=== PATIENT | male | born 1940 | race Caucasian/White ===

== ENCOUNTER 2020-07-03 10:54 | Inpatient (IN) | payer MEDICARE, OTHER, MEDICAID ==
[2020-07-03] MEDS ORDERED: Sodium Chloride 0.9% 1,000 ML IV SCH (11:30)
--- NOTE | 2020-07-03 11:30 | EDM.PDOC ---
ED HPI GENERAL MEDICAL PROBLEM - General Chief Complaint: Respiratory Problem Stated Complaint: FEVER,SOB,COUGH Time Seen by Provider: 07/03/20 11:10 Source of Information: Reports: Patient History Limitations: Reports: No Limitations - History of Present Illness INITIAL COMMENTS - FREE TEXT/NARRATIVE: 79-year-old male without prior pulmonary issues, presents with a cough for the last 4 weeks but worsening over the last several days with development of a fever, increased cough and shortness of breath. He had some upper abdominal pain this morning with an episode of vomiting, that seems to have improved. He has a persistent fever now, confusion, and there is a concern for COVID. He has some conjunctival erythema but no headache, denies runny nose or sore throat. He claims he slept well last evening. No peripheral edema. He does have known coronary artery disease and recently participated in cardiac rehab. Onset: Gradual Duration: Week(s): (Symptoms have been ongoing for 2 to 3 weeks but the fever and increased cough is been the last 2 days) Associated Symptoms: Reports: Nausea/Vomiting, Other (Upper abdominal pain this morning) - Related Data Allergies Allergy/AdvReac Type Severity Reaction Status Date / Time No Known Allergies Allergy Verified 04/20/15 17:35 Home Meds: Home Meds Aspirin [Aspir 81] 81 mg PO DAILY 07/03/20 [History] Brimonidine [Alphagan P 0.1% Ophth Soln] 1 drop EYEBOTH BID 07/03/20 [History] Dorzolamide HCl/Timolol Maleat [Dorzolamide-Timolol Eye Drops] 1 drop EYEBOTH BID 07/03/20 [History] Isosorbide Mononitrate [Imdur] 30 mg PO DAILY 07/03/20 [History] Metoprolol Tartrate [Lopressor] 25 mg PO DAILY 07/03/20 [History] amLODIPine [Norvasc] 2.5 mg PO DAILY 07/03/20 [History] Past Medical History HEENT History: Reports: Glaucoma Cardiovascular History: Reports: CAD, Hypertension Social & Family History - Tobacco Use Smoking Status *Q: Former Smoker Used Tobacco, but Quit: Yes Month/Year Tobacco Last Used: 1969 - Caffeine Use Caffeine Use: Reports: Coffee - Recreational Drug Use Recreational Drug Use: No ED ROS GENERAL - Review of Systems Review Of Systems: See Below Constitutional: Reports: Fever, Chills, Malaise, Decreased Appetite HEENT: Denies: Ear Pain, Throat Pain Respiratory: Reports: Shortness of Breath, Wheezing, Cough. Denies: Sputum Cardiovascular: Denies: Chest Pain GI/Abdominal: Reports: Abdominal Pain, Nausea, Vomiting. Denies: Constipation, Diarrhea : Reports: No Symptoms Neurological: Reports: Confusion (Patient seems somewhat confused, slow in answering questions). Denies: Headache Psychiatric: Reports: No Symptoms ED EXAM, GENERAL - Physical Exam Exam: See Below Exam Limited By: No Limitations General Appearance: Alert, No Apparent Distress Eye Exam: Bilateral Eye: Conjunctival Injection, EOMI, PERRL Head: Atraumatic Neck: Supple, Non-Tender Respiratory/Chest: Wheezing (Expiratory wheezes are heard when coughing, otherwise decreased breath sounds in the bases but clear and symmetric) Cardiovascular: Regular Rate, Rhythm, Tachycardia GI/Abdominal: Normal Bowel Sounds, Soft, Tender (Still reacts with some slight tenderness to palpation across the upper abdomen but no focal guarding or rebound, no focal tenderness) Extremities: Normal Inspection. No: Pedal Edema Neurological: Alert, Oriented, Slow to Respond Psychiatric: Flat Affect Skin Exam: Warm, Dry Course - Vital Signs Last Recorded V/S: Last Vital Signs Temp 99.5 F 07/03/20 14:00 Pulse 112 H 07/03/20 14:00 Resp 31 H 07/03/20 14:00 BP 106/62 07/03/20 14:00 Pulse Ox 91 L 07/03/20 14:02 - Orders/Labs/Meds Orders: Active Orders 24 hr Category Date Time Status CULTURE BLOOD [BC] Urgent Lab 07/03/20 11:35 Received CULTURE BLOOD [BC] Urgent Lab 07/03/20 11:42 Received Blood Culture x2 Reflex Set [OM.PC] Urgent Oth 07/03/20 11:24 Ordered Medication Orders Acetaminophen (Tylenol) 650 mg PO Q4H PRN PRN Reason: Pain (Mild 1-3)/fever Albuterol (Proventil Neb Soln) 2.5 mg NEB Q4H PRN PRN Reason: Shortness Of Breath/wheezing Amlodipine Besylate (Norvasc) 2.5 mg PO DAILY [facility] Aspirin (Halfprin) 81 mg PO DAILY [facility] Brimonidine Tartrate (Alphagan 0.2% Ophth Soln) 0 ml EYEBOTH BID [facility] Dorzolamide/Timolol (Cosopt 2%-0.5% Ophth Soln) 0 ml EYEBOTH BID [facility] Enoxaparin Sodium (Lovenox) 40 mg SUBCUT DAILY [facility] Sodium Chloride (Normal Saline) 1,000 mls @ 125 mls/hr IV ASDIRECTED [facility] Ceftriaxone Sodium 1 gm/ (Sodium Chloride) 50 mls @ 100 mls/hr IV Q24H [facility] Doxycycline Hyclate 100 mg/ (Sodium Chloride) 100 mls @ 100 mls/hr IV Q12H [facility] Isosorbide Mononitrate (Imdur) 30 mg PO DAILY@0730 [facility] Metoprolol Tartrate (Lopressor) 25 mg PO DAILY [facility] Ondansetron HCl (Zofran) 4 mg IV Q4H PRN PRN Reason: Nausea/Vomiting Polyethylene Glycol (Miralax) 17 gm PO DAILY PRN PRN Reason: Constipation Sodium Chloride (Saline Flush) 10 ml FLUSH ASDIRECTED PRN PRN Reason: Keep Vein Open Labs: Laboratory Tests 07/03/20 07/03/20 07/03/20 Range/Units 11:30 11:42 11:42 WBC 7.3 (4.5-11.0) K/uL RBC 4.15 L (4.30-5.90) M/uL Hgb 13.2 (12.0-15.0) g/dL Hct 39.5 L (40.0-54.0) % MCV 95 (80-98) fL MCH 32 H (27-31) pg MCHC 33 (32-36) % Plt Count 243 (150-400) K/uL Neut % (Auto) 74 H (36-66) % Lymph % (Auto) 16 L (24-44) % [place] % (Auto) 9 H (2-6) % Eos % (Auto) 0 L (2-4) % Baso % (Auto) 0 (0-1) % Sodium 133 L (140-148) mmol/L Potassium 3.5 L (3.6-5.2) mmol/L Chloride 100 (100-108) mmol/L Carbon Dioxide 23 (21-32) mmol/L Anion Gap 13.5 (5.0-14.0) mmol/L BUN 21 H (7-18) mg/dL Creatinine 1.6 H (0.8-1.3) mg/dL Est Cr Clr Drug Dosing 39.29 mL/min Estimated GFR (MDRD) 42 L (>60) Glucose 127 H (74-106) mg/dL Lactic Acid (0.4-2.0) mmol/L Calcium 7.8 L (8.5-10.1) mg/dL Total Bilirubin 0.9 (0.2-1.0) mg/dL AST 38 H (15-37) U/L ALT 36 (12-78) U/L Alkaline Phosphatase 70 (46-116) U/L Total Protein 6.1 L (6.4-8.2) g/dL Albumin 2.8 L (3.4-5.0) g/dL Globulin 3.3 (2.3-3.5) g/dL Albumin/Globulin Ratio 0.9 L (1.2-2.2) SARS Virus RNA (PCR) Negative (NEGATIVE) 07/03/20 Range/Units 11:42 WBC (4.5-11.0) K/uL RBC (4.30-5.90) M/uL Hgb (12.0-15.0) g/dL Hct (40.0-54.0) % MCV (80-98) fL MCH (27-31) pg MCHC (32-36) % Plt Count (150-400) K/uL Neut % (Auto) (36-66) % Lymph % (Auto) (24-44) % [place] % (Auto) (2-6) % Eos % (Auto) (2-4) % Baso % (Auto) (0-1) % Sodium (140-148) mmol/L Potassium (3.6-5.2) mmol/L Chloride (100-108) mmol/L Carbon Dioxide (21-32) mmol/L Anion Gap (5.0-14.0) mmol/L BUN (7-18) mg/dL Creatinine (0.8-1.3) mg/dL Est Cr Clr Drug Dosing mL/min Estimated GFR (MDRD) (>60) Glucose (74-106) mg/dL Lactic Acid 2.3 H (0.4-2.0) mmol/L Calcium (8.5-10.1) mg/dL Total Bilirubin (0.2-1.0) mg/dL AST (15-37) U/L ALT (12-78) U/L Alkaline Phosphatase (46-116) U/L Total Protein (6.4-8.2) g/dL Albumin (3.4-5.0) g/dL Globulin (2.3-3.5) g/dL Albumin/Globulin Ratio (1.2-2.2) SARS Virus RNA (PCR) (NEGATIVE) Meds: Medications Generic Name Dose Route Start Last Admin Trade Name Freq PRN Reason Stop Dose Admin Acetaminophen 650 mg 07/03/20 13:25 Tylenol PO Q4H PRN Pain (Mild 1-3)/fever Albuterol 2.5 mg 07/03/20 13:25 Proventil Neb Soln NEB Q4H PRN Shortness Of Breath/wheezing Amlodipine Besylate 2.5 mg 07/04/20 09:00 Norvasc PO DAILY [facility] Aspirin 81 mg 07/04/20 09:00 Halfprin PO DAILY [facility] Brimonidine Tartrate 0 ml 07/03/20 21:00 Alphagan 0.2% Ophth Soln EYEBOTH BID [facility] Dorzolamide/Timolol 0 ml 07/03/20 21:00 Cosopt 2%-0.5% Ophth Soln EYEBOTH BID [facility] Enoxaparin Sodium 40 mg 07/03/20 14:00 Lovenox SUBCUT DAILY [facility] Sodium Chloride 1,000 mls @ 125 mls/hr 07/03/20 13:25 Normal Saline IV ASDIRECTED [facility] Ceftriaxone Sodium 1 gm/ 50 mls @ 100 mls/hr 07/04/20 13:00 Sodium Chloride IV Q24H [facility] Doxycycline Hyclate 100 mg/ 100 mls @ 100 mls/hr 07/03/20 16:00 Sodium Chloride IV Q12H [facility] Isosorbide Mononitrate 30 mg 07/04/20 07:30 Imdur PO DAILY@0730 [facility] Metoprolol Tartrate 25 mg 07/04/20 09:00 Lopressor PO DAILY [facility] Ondansetron HCl 4 mg 07/03/20 13:25 Zofran IV Q4H PRN Nausea/Vomiting Polyethylene Glycol 17 gm 07/03/20 13:25 Miralax PO DAILY PRN Constipation Sodium Chloride 10 ml 07/03/20 13:25 Saline Flush FLUSH ASDIRECTED PRN Keep Vein Open Discontinued Medications Generic Name Dose Route Start Last Admin Trade Name Stella PRN Reason Stop Dose Admin Acetaminophen 1,000 mg 07/03/20 12:17 07/03/20 13:29 Tylenol Extra Strength PO 07/03/20 12:18 1,000 mg ONETIME ONE Administration Sodium Chloride 1,000 mls @ 1,000 mls/hr 07/03/20 11:30 07/03/20 11:42 Normal Saline IV 1,000 mls/hr ASDIRECTED [facility] Administration Azithromycin 500 mg/ Sodium 250 mls @ 250 mls/hr 07/03/20 12:17 Chloride IV 07/03/20 13:16 ONETIME ONE Ceftriaxone Sodium 1 gm/ 50 mls @ 100 mls/hr 07/03/20 13:15 07/03/20 13:29 Sodium Chloride IV 07/03/20 13:44 100 mls/hr ONETIME ONE Administration - Re-Assessments/Exams Free Text/Narrative Re-Assessment/Exam: 07/03/20 11:30 An IV was started, patient will be bolused with 1 L of normal saline while blood cultures x2, CBC, CMP, lactic acid and COVID test will be obtained. Two-view chest x-ray was ordered and patient will be started on antibiotics after the blood cultures are drawn. 07/03/20 12:07 Chest x-ray is clear, white count is normal. Patient was given 1000 g of acetaminophen for his fever, chemistry profile did have abnormalities including elevated creatinine and BUN. 07/03/20 13:24 Patient continued to run fever, cover test came back negative. UA showed no evidence of infection. Lactic acid was mildly elevated and kidney function was mildly reduced, no previous levels to compare. Discussed his case with Dr. Osborn, he agreed to watch him in the hospital and we started IV antibiotics with Rocephin and Zithromax pending blood culture results. Departure - Departure Time of Disposition: 13:49 Disposition: Admitted As Inpatient 67 Clinical Impression: Bronchitis, Hypoxia Fever Qualifiers: Fever type: due to other condition Qualified Code(s): R50.81 - Fever presenting with conditions classified elsewhere - Discharge Information Sepsis Event Note (ED) - Evaluation Sepsis Screening Result: Possible Sepsis Risk - Focused Exam Vital Signs: Vital Signs Temp Pulse Resp BP Pulse Ox 07/03/20 11:05 102.5 F H 120 H 24 H 132/82 90 L 07/03/20 11:04 102.5 F H 120 H 24 H 132/82 90 L - My Orders Last 24 Hours: My Active Orders 07/03/20 11:24 Blood Culture x2 Reflex Set [OM.PC] Urgent 07/03/20 11:35 CULTURE BLOOD [BC] Urgent 07/03/20 11:42 CULTURE BLOOD [BC] Urgent - Assessment/Plan Last 24 Hours: My Active Orders 07/03/20 11:24 Blood Culture x2 Reflex Set [OM.PC] Urgent 07/03/20 11:35 CULTURE BLOOD [BC] Urgent 07/03/20 11:42 CULTURE BLOOD [BC] Urgent
[2020-07-03] MEDS ORDERED: Azithromycin 500 MG in Sodium Chloride 0.9% 250 ML IV ONE (12:17)
[2020-07-03] MEDS ORDERED: Acetaminophen 500 MG Tab PO ONE (12:17)
[2020-07-03] MEDS ORDERED: cefTRIAXone 1 GM in Sodium Chloride 0.9% 50 ML IV ONE ×2 (12:17→13:15)
--- NOTE | 2020-07-03 12:58 | PCM.HP.2 ---
H&P History of Present Illness - General Date of Service: 07/03/20 Admit Problem/Dx: Admission Diagnosis/Problem Admission Diagnosis/Problem Hypoxia Source of Information: Patient, Family, Provider, RN Notes Reviewed History Limitations: Reports: No Limitations - History of Present Illness Initial Comments - Free Text/Narative: Mr. Lawson is a 79-year-old gentleman who was admitted through the emergency department with weakness, fever, hypoxia, and cough, secondary to bronchitis and respiratory compromise. He has not felt well over the past few weeks, during that time and has had a cough with progressive decrease in appetite and overall strength. Symptoms have been worse over the last 2 days so he presented to the emergency department for further evaluation. White blood cell count is normal, chest x-ray shows no obvious infiltrates, and COVID-19 test is negative. Respiratory rate was found to be increased with borderline oxygenation and oxygen saturation of 90% on room air. - Related Data Allergies/Adverse Reactions: Allergies Allergy/AdvReac Type Severity Reaction Status Date / Time No Known Allergies Allergy Verified 04/20/15 17:35 Home Medications: Home Meds Aspirin [Aspir 81] 81 mg PO DAILY 07/03/20 [History] Brimonidine [Alphagan P 0.1% Ophth Soln] 1 drop EYEBOTH BID 07/03/20 [History] Dorzolamide HCl/Timolol Maleat [Dorzolamide-Timolol Eye Drops] 1 drop EYEBOTH BID 07/03/20 [History] Isosorbide Mononitrate [Imdur] 30 mg PO DAILY 07/03/20 [History] Metoprolol Tartrate [Lopressor] 25 mg PO DAILY 07/03/20 [History] amLODIPine [Norvasc] 2.5 mg PO DAILY 07/03/20 [History] Past Medical History HEENT History: Reports: Glaucoma Cardiovascular History: Reports: CAD, Hypertension Social & Family History - Tobacco Use Smoking Status *Q: Former Smoker Used Tobacco, but Quit: Yes Month/Year Tobacco Last Used: 1969 - Caffeine Use Caffeine Use: Reports: Coffee - Recreational Drug Use Recreational Drug Use: No H&P Review of Systems - Review of Systems: Review Of Systems: See Below General: Reports: Fever, Chills, Malaise, Weakness HEENT: Reports: No Symptoms Pulmonary: Reports: Shortness of Breath, Cough. Denies: Wheezing, Pleuritic Chest Pain, Sputum, Hemoptysis Cardiovascular: Reports: Dyspnea on Exertion. Denies: Chest Pain, Palpitations, Orthopnea, PND, Edema, Lightheadedness Gastrointestinal: Reports: No Symptoms Genitourinary: Reports: No Symptoms Musculoskeletal: Reports: No Symptoms Skin: Reports: No Symptoms Psychiatric: Reports: No Symptoms Neurological: Reports: No Symptoms Hematologic/Lymphatic: Reports: No Symptoms Immunologic: Reports: No Symptoms Exam - Exam Exam: See Below - Vital Signs Vital Signs: Last Vital Signs Temp 102.5 F H 07/03/20 11:05 Pulse 120 H 07/03/20 11:05 Resp 24 H 07/03/20 11:05 BP 132/82 07/03/20 11:05 Pulse Ox 90 L 07/03/20 11:05 Weight: 214 lb - Exam Quality Assessment: DVT Prophylaxis General: Alert, Oriented, Cooperative, Moderate Distress Neck: Supple, Trachea Midline, +2 Carotid Pulse wo Bruit Lungs: Decreased Breath Sounds. No: Crackles, Rales, Rhonchi, Wheezing Cardiovascular: Regular Rhythm, Normal S1, Normal S2, Tachycardia. No: Systolic Murmur, Diastolic Murmur GI/Abdominal Exam: Soft, Non-Tender, No Organomegaly, No Distention Extremities: Normal Inspection, Non-Tender, No Pedal Edema Skin: Warm, Dry, Intact Neurological: Cranial Nerves Intact, Strength Equal Bilateral, Normal Speech, Normal Tone, Sensation Intact. No: Focal Deficit Neuro Extensive - Mental Status: Alert, Oriented x3, Normal Mood/Affect, Normal Cognition, Memory Intact - Patient Data Lab Results Last 24 hrs: Laboratory Results - last 24 hr 07/03/20 07/03/20 07/03/20 Range/Units 11:30 11:42 11:42 WBC 7.3 (4.5-11.0) K/uL RBC 4.15 L (4.30-5.90) M/uL Hgb 13.2 (12.0-15.0) g/dL Hct 39.5 L (40.0-54.0) % MCV 95 (80-98) fL MCH 32 H (27-31) pg MCHC 33 (32-36) % Plt Count 243 (150-400) K/uL Neut % (Auto) 74 H (36-66) % Lymph % (Auto) 16 L (24-44) % [place] % (Auto) 9 H (2-6) % Eos % (Auto) 0 L (2-4) % Baso % (Auto) 0 (0-1) % Sodium 133 L (140-148) mmol/L Potassium 3.5 L (3.6-5.2) mmol/L Chloride 100 (100-108) mmol/L Carbon Dioxide 23 (21-32) mmol/L Anion Gap 13.5 (5.0-14.0) mmol/L BUN 21 H (7-18) mg/dL Creatinine 1.6 H (0.8-1.3) mg/dL Est Cr Clr Drug Dosing 39.29 mL/min Estimated GFR (MDRD) 42 L (>60) Glucose 127 H (74-106) mg/dL Lactic Acid (0.4-2.0) mmol/L Calcium 7.8 L (8.5-10.1) mg/dL Total Bilirubin 0.9 (0.2-1.0) mg/dL AST 38 H (15-37) U/L ALT 36 (12-78) U/L Alkaline Phosphatase 70 (46-116) U/L Total Protein 6.1 L (6.4-8.2) g/dL Albumin 2.8 L (3.4-5.0) g/dL Globulin 3.3 (2.3-3.5) g/dL Albumin/Globulin Ratio 0.9 L (1.2-2.2) SARS Virus RNA (PCR) Negative (NEGATIVE) 07/03/20 Range/Units 11:42 WBC (4.5-11.0) K/uL RBC (4.30-5.90) M/uL Hgb (12.0-15.0) g/dL Hct (40.0-54.0) % MCV (80-98) fL MCH (27-31) pg MCHC (32-36) % Plt Count (150-400) K/uL Neut % (Auto) (36-66) % Lymph % (Auto) (24-44) % [place] % (Auto) (2-6) % Eos % (Auto) (2-4) % Baso % (Auto) (0-1) % Sodium (140-148) mmol/L Potassium (3.6-5.2) mmol/L Chloride (100-108) mmol/L Carbon Dioxide (21-32) mmol/L Anion Gap (5.0-14.0) mmol/L BUN (7-18) mg/dL Creatinine (0.8-1.3) mg/dL Est Cr Clr Drug Dosing mL/min Estimated GFR (MDRD) (>60) Glucose (74-106) mg/dL Lactic Acid 2.3 H (0.4-2.0) mmol/L Calcium (8.5-10.1) mg/dL Total Bilirubin (0.2-1.0) mg/dL AST (15-37) U/L ALT (12-78) U/L Alkaline Phosphatase (46-116) U/L Total Protein (6.4-8.2) g/dL Albumin (3.4-5.0) g/dL Globulin (2.3-3.5) g/dL Albumin/Globulin Ratio (1.2-2.2) SARS Virus RNA (PCR) (NEGATIVE) Result Diagrams: 07/03/20 11:42 07/03/20 11:42 Sepsis Event Note - Evaluation Sepsis Screening Result: Possible Sepsis Risk - Focused Exam Vital Signs: Vital Signs Temp Pulse Resp BP Pulse Ox 07/03/20 11:05 102.5 F H 120 H 24 H 132/82 90 L 07/03/20 11:04 102.5 F H 120 H 24 H 132/82 90 L Date Exam was Performed: 07/03/20 Time Exam was Performed: 13:14 *Q Meaningful Use (ADM) - VTE Risk Assess *Q Each Risk Factor Represents 1 Point: Obesity ( BMI > 25 kg/m2) Total Score 1 Point Risk Factors: 1 Each Risk Factor Represents 2 Points: None Total Score 2 Point Risk Factors: 0 Each Risk Factor Represents 3 Points: Age 75 Years or Greater Total Score 3 Point Risk Factors: 3 Each Risk Factor Represents 5 Points: None Total Score 5 Point Risk Factors: 0 Venous Thromboembolism Risk Factor Score *Q: 4 Problem List Initiated/Reviewed/Updated: Yes Orders Last 24hrs: Active Orders 24 hr Category Date Time Status Patient Status Manage Transfer [TRANSFER] Routine ADT 07/03/20 12:52 Active Chest 2V [CR] Routine Exams 07/03/20 11:23 Taken BLOOD GAS ARTERIAL [BG] Stat Lab 07/03/20 12:57 Ordered CULTURE BLOOD [BC] Urgent Lab 07/03/20 11:35 Received CULTURE BLOOD [BC] Urgent Lab 07/03/20 11:42 Received UA W/MICROSCOPIC [URIN] Urgent Lab 07/03/20 12:55 Ordered Azithromycin [Zithromax] 500 mg Med 07/03/20 12:17 Active Sodium Chloride 0.9% [Normal Saline] 250 ml IV ONETIME Sodium Chloride 0.9% [Normal Saline] 1,000 ml Med 07/03/20 11:30 Active IV ASDIRECTED Blood Culture x2 Reflex Set [OM.PC] Urgent Oth 07/03/20 11:24 Ordered Resuscitation Status Routine Resus Stat 07/03/20 12:54 Ordered Medication Orders Sodium Chloride (Normal Saline) 1,000 mls @ 1,000 mls/hr IV ASDIRECTED [facility] Last Admin: 07/03/20 11:42 Dose: 1,000 mls/hr Documented by: [id number] Azithromycin 500 mg/ Sodium (Chloride) 250 mls @ 250 mls/hr IV ONETIME ONE Stop: 07/03/20 13:16 Assessment/Plan Comment:: ASSESSMENT AND PLAN HYPOXIC RESPIRATORY FAILURE-symptoms of cough with progressive weakness over the past few weeks. Fever with worsening of cough over the past few days. White blood cell count is normal and chest x-ray shows no obvious infiltrates. COVID- 19 is negative. -Supplemental oxygen as needed -Cultures pending -Nebulized albuterol as needed -Empiric IV antibiotic therapy with doxycycline and ceftriaxone, pending culture result -IV fluids for hydration BRONCHITIS-viral versus bacterial, given respiratory compromise will cover with antibiotics as above -Management as above CORONARY ARTERY DISEASE-currently asymptomatic -Continue outpatient medications MAINTENANCE ISSUES -DVT prophylaxis; Lovenox 40 mg subcu daily -GI prophylaxis; not indicated -Ariza catheter; not indicated -Nutrition; regular diet -Nicotine dependence; not required CODE STATUS-full code ADMISSION STATUS-patient will be admitted to inpatient status, expect at least a 2 night hospital stay for evaluation and management of problems as outlined above. At the time of this admission I do not reasonably expected evaluation and management of this problem will require more than a 96 hour hospital stay. DISPOSITION-anticipate discharge to home after the hospital stay. PRIMARY CARE PROVIDER-Dr. Arciniega - Mortality Measure Prognosis:: Good
--- NOTE | 2020-07-03 13:20 | CR ---
CHEST: 2 view CLINICAL HISTORY:Dyspnea COMPARISON:None FINDINGS: The heart size, pulmonary vascularity and hilar structures are normal. No infiltrate effusion or pneumothorax is seen. There are atherosclerotic changes in the aorta. IMPRESSION: No acute cardiopulmonary process.
[2020-07-03] MEDS ORDERED: Ondansetron 4 MG/2 ML SDV IV PRN (13:25)
[2020-07-03] MEDS ORDERED: Sodium Chloride 0.9% 10 ML Syringe FLUSH PRN (13:25)
[2020-07-03] MEDS ORDERED: Acetaminophen 325 MG Tab PO PRN (13:25)
[2020-07-03] MEDS ORDERED: Albuterol 0.083% 2.5 MG/3 ML Neb Soln NEB PRN (13:25)
[2020-07-03] MEDS ORDERED: Polyethylene Glycol 3350 Powder 17 GM Packet PO PRN (13:25)
[2020-07-03] MEDS ORDERED: Enoxaparin 40 MG/0.4 ML Syringe SUBCUT SCH (14:00)
[2020-07-03] MEDS: Sodium Chloride 0.9% 1,000 ML IV SCH (14:20)
[2020-07-03] MEDS: Doxycycline 100 MG in Sodium Chloride 0.9% 100 ML IV SCH (15:51)
[2020-07-03] MEDS ORDERED: Enoxaparin 60 MG/0.6 ML Syringe SUBCUT ONE (17:54)
--- NOTE | 2020-07-03 18:23 | CRLUS ---
INDICATION: Leg pain and swelling TECHNIQUE: Ultrasound venous duplex lower left extremity. Compression venous exam was performed using cowan-scale, color Doppler, and spectral Doppler analysis. COMPARISON: None. FINDINGS: Sonographic imaging demonstrates the left common femoral, deep femoral, superficial femoral, popliteal, posterior tibial and the contralateral right common femoral veins to be fully compressible with normal color Doppler blood flow. Occlusive thrombus within the left greater saphenous vein. Distance from the thrombus to its confluence with the common femoral vein is 1.5 centimeters. IMPRESSION: 1. Acute superficial venous thrombosis within the left greater saphenous vein. 2. Remaining veins of the left lower extremity are widely patent. Dictated by Jesu Ibarra MD @ Jul 03 2020 6:21PM Signed by Dr. Jesu Ibarra @ Jul 03 2020 6:23PM
[2020-07-03] MEDS: Dorzolamide/Timolol 2%-0.5% Ophth Soln 10 ML Bottle EYEBOTH SCH (20:59)
[2020-07-03] MEDS: Brimonidine 0.2% Ophth Soln 5 ML Bottle EYEBOTH SCH (21:00)
[2020-07-04] MEDS: Doxycycline 100 MG in Sodium Chloride 0.9% 100 ML IV SCH ×2 (04:07→16:41)
[2020-07-04] MEDS: Enoxaparin 100 MG/1 ML Syringe SUBCUT SCH ×2 (05:11→17:43)
[2020-07-04] MEDS: Isosorbide Mononitrate 30 MG Tab.ER PO SCH (07:45)
[2020-07-04] MEDS: amLODIPine 5 MG Tab PO SCH (08:22)
[2020-07-04] MEDS: Metoprolol Tartrate 25 MG Tab PO SCH ×2 (08:22→09:51)
[2020-07-04] MEDS: Aspirin 81 MG Tab.EC PO SCH (08:24)
[2020-07-04] MEDS: Dorzolamide/Timolol 2%-0.5% Ophth Soln 10 ML Bottle EYEBOTH SCH ×2 (08:32→20:00)
[2020-07-04] MEDS: Brimonidine 0.2% Ophth Soln 5 ML Bottle EYEBOTH SCH ×2 (08:33→20:00)
[2020-07-04] MEDS ORDERED: Potassium Chloride 20 MEQ Tab.ER PO ONE ×2 (09:00→17:00)
[2020-07-04] MEDS: Sodium Chloride 0.9% 1,000 ML IV SCH ×2 (09:01)
--- NOTE | 2020-07-04 09:06 | PCM.PN ---
- General Info Date of Service: 07/04/20 Subjective Update: Mr. Lawson has felt improved since admission yesterday with less shortness of breath and cough. After admission was noted to have some erythema of his left thigh, venous Doppler study showed evidence of superficial vein thrombosis, no evidence of deep vein thrombosis. He has had no further temperature elevations and has been hemodynamically stable. Functional Status: Reports: Tolerating Diet, Urinating - Review of Systems General: Reports: Weakness, Fatigue. Denies: Fever, Chills Pulmonary: Reports: Shortness of Breath, Cough, Wheezing. Denies: Pleuritic Chest Pain, Sputum, Hemoptysis Cardiovascular: Reports: Dyspnea on Exertion. Denies: Chest Pain, Palpitations, Orthopnea, PND, Edema, Lightheadedness Gastrointestinal: Reports: No Symptoms - Patient Data Vitals - Most Recent: Last Vital Signs Temp 98.3 F 07/04/20 07:51 Pulse 66 07/04/20 08:22 Resp 17 07/04/20 07:51 BP 126/77 07/04/20 08:22 Pulse Ox 95 07/04/20 07:51 Weight - Most Recent: 213 lb I&O - Last 24 Hours: Intake & Output 07/03/20 07/04/20 07/04/20 22:59 06:59 14:59 Intake Total 1936 Output Total 1180 360 300 Balance -1180 1576 -300 Lab Results Last 24 Hours: Laboratory Results - last 24 hr 07/03/20 07/03/20 07/03/20 Range/Units 11:30 11:42 11:42 WBC 7.3 (4.5-11.0) K/uL RBC 4.15 L (4.30-5.90) M/uL Hgb 13.2 (12.0-15.0) g/dL Hct 39.5 L (40.0-54.0) % MCV 95 (80-98) fL MCH 32 H (27-31) pg MCHC 33 (32-36) % Plt Count 243 (150-400) K/uL Neut % (Auto) 74 H (36-66) % Lymph % (Auto) 16 L (24-44) % [place] % (Auto) 9 H (2-6) % Eos % (Auto) 0 L (2-4) % Baso % (Auto) 0 (0-1) % Puncture Site ABG pH (7.350-7.450) ABG pCO2 (35.0-42.0) mmHg ABG pO2 (75.0-100.0) mmHg ABG HCO3 (22.0-26.0) mmol/L ABG Total CO2 (23.0-27.0) mmol/L ABG O2 Saturation (95.0-98.0) % ABG O2 Content (15.0-23.0) %vol ABG Base Excess mm/L ABG Hemoglobin (13.5-18.0) g/dL ABG Oxyhemoglobin % ABG Carboxyhemoglobin (0.0-1.6) % ABG Methemoglobin % Thang Test O2 Delivery Device Sodium 133 L (140-148) mmol/L Potassium 3.5 L (3.6-5.2) mmol/L Chloride 100 (100-108) mmol/L Carbon Dioxide 23 (21-32) mmol/L Anion Gap 13.5 (5.0-14.0) mmol/L BUN 21 H (7-18) mg/dL Creatinine 1.6 H (0.8-1.3) mg/dL Est Cr Clr Drug Dosing 39.29 mL/min Estimated GFR (MDRD) 42 L (>60) Glucose 127 H (74-106) mg/dL Lactic Acid (0.4-2.0) mmol/L Calcium 7.8 L (8.5-10.1) mg/dL Total Bilirubin 0.9 (0.2-1.0) mg/dL AST 38 H (15-37) U/L ALT 36 (12-78) U/L Alkaline Phosphatase 70 (46-116) U/L Total Protein 6.1 L (6.4-8.2) g/dL Albumin 2.8 L (3.4-5.0) g/dL Globulin 3.3 (2.3-3.5) g/dL Albumin/Globulin Ratio 0.9 L (1.2-2.2) Urine Color (YELLOW) Urine Appearance (CLEAR) Urine pH (5.0-8.0) Ur Specific [place] (1.008-1.030) Urine Protein (NEGATIVE) mg/dL Urine Glucose (UA) (NEGATIVE) mg/dL Urine Ketones (NEGATIVE) mg/dL Urine Occult Blood (NEGATIVE) Urine Nitrite (NEGATIVE) Urine Bilirubin (NEGATIVE) Urine Urobilinogen (0.2-1.0) EU/dL Ur Leukocyte Esterase (NEGATIVE) Urine RBC (0-5) Urine WBC (0-5) Ur Epithelial Cells Amorphous Sediment Urine Bacteria Urine Mucus SARS Virus RNA (PCR) Negative (NEGATIVE) 07/03/20 07/03/20 07/03/20 Range/Units 11:42 12:55 13:10 WBC (4.5-11.0) K/uL RBC (4.30-5.90) M/uL Hgb (12.0-15.0) g/dL Hct (40.0-54.0) % MCV (80-98) fL MCH (27-31) pg MCHC (32-36) % Plt Count (150-400) K/uL Neut % (Auto) (36-66) % Lymph % (Auto) (24-44) % [place] % (Auto) (2-6) % Eos % (Auto) (2-4) % Baso % (Auto) (0-1) % Puncture Site Right radial ABG pH 7.487 H (7.350-7.450) ABG pCO2 28.5 L (35.0-42.0) mmHg ABG pO2 63.2 L (75.0-100.0) mmHg ABG HCO3 21.3 L (22.0-26.0) mmol/L ABG Total CO2 18.7 L (23.0-27.0) mmol/L ABG O2 Saturation 92.6 L (95.0-98.0) % ABG O2 Content 16.7 (15.0-23.0) %vol ABG Base Excess -0.6 mm/L ABG Hemoglobin 13.1 L (13.5-18.0) g/dL ABG Oxyhemoglobin 90.7 % ABG Carboxyhemoglobin 0.9 (0.0-1.6) % ABG Methemoglobin 1.1 % Thang Test Passed O2 Delivery Device Nasal cannula Sodium (140-148) mmol/L Potassium (3.6-5.2) mmol/L Chloride (100-108) mmol/L Carbon Dioxide (21-32) mmol/L Anion Gap (5.0-14.0) mmol/L BUN (7-18) mg/dL Creatinine (0.8-1.3) mg/dL Est Cr Clr Drug Dosing mL/min Estimated GFR (MDRD) (>60) Glucose (74-106) mg/dL Lactic Acid 2.3 H (0.4-2.0) mmol/L Calcium (8.5-10.1) mg/dL Total Bilirubin (0.2-1.0) mg/dL AST (15-37) U/L ALT (12-78) U/L Alkaline Phosphatase (46-116) U/L Total Protein (6.4-8.2) g/dL Albumin (3.4-5.0) g/dL Globulin (2.3-3.5) g/dL Albumin/Globulin Ratio (1.2-2.2) Urine Color Yellow (YELLOW) Urine Appearance Clear (CLEAR) Urine pH 6.0 (5.0-8.0) Ur Specific [place] 1.020 (1.008-1.030) Urine Protein 30 H (NEGATIVE) mg/dL Urine Glucose (UA) Negative (NEGATIVE) mg/dL Urine Ketones Negative (NEGATIVE) mg/dL Urine Occult Blood Trace-intact H (NEGATIVE) Urine Nitrite Negative (NEGATIVE) Urine Bilirubin Negative (NEGATIVE) Urine Urobilinogen 2.0 H (0.2-1.0) EU/dL Ur Leukocyte Esterase Negative (NEGATIVE) Urine RBC 0-5 (0-5) Urine WBC Not seen (0-5) Ur Epithelial Cells Few Amorphous Sediment Not seen Urine Bacteria Not seen Urine Mucus Many SARS Virus RNA (PCR) (NEGATIVE) 07/04/20 07/04/20 Range/Units 05:00 05:00 WBC 5.4 (4.5-11.0) K/uL RBC 3.62 L (4.30-5.90) M/uL Hgb 11.4 L (12.0-15.0) g/dL Hct 35.0 L (40.0-54.0) % MCV 97 (80-98) fL MCH 32 H (27-31) pg MCHC 33 (32-36) % Plt Count 185 (150-400) K/uL Neut % (Auto) 54 (36-66) % Lymph % (Auto) 35 (24-44) % [place] % (Auto) 10 H (2-6) % Eos % (Auto) 0 L (2-4) % Baso % (Auto) 1 (0-1) % Puncture Site ABG pH (7.350-7.450) ABG pCO2 (35.0-42.0) mmHg ABG pO2 (75.0-100.0) mmHg ABG HCO3 (22.0-26.0) mmol/L ABG Total CO2 (23.0-27.0) mmol/L ABG O2 Saturation (95.0-98.0) % ABG O2 Content (15.0-23.0) %vol ABG Base Excess mm/L ABG Hemoglobin (13.5-18.0) g/dL ABG Oxyhemoglobin % ABG Carboxyhemoglobin (0.0-1.6) % ABG Methemoglobin % Thang Test O2 Delivery Device Sodium 139 L (140-148) mmol/L Potassium 3.5 L (3.6-5.2) mmol/L Chloride 108 (100-108) mmol/L Carbon Dioxide 23 (21-32) mmol/L Anion Gap 11.5 (5.0-14.0) mmol/L BUN 16 (7-18) mg/dL Creatinine 1.2 (0.8-1.3) mg/dL Est Cr Clr Drug Dosing 52.38 mL/min Estimated GFR (MDRD) 59 L (>60) Glucose 90 (74-106) mg/dL Lactic Acid (0.4-2.0) mmol/L Calcium 7.0 L (8.5-10.1) mg/dL Total Bilirubin (0.2-1.0) mg/dL AST (15-37) U/L ALT (12-78) U/L Alkaline Phosphatase (46-116) U/L Total Protein (6.4-8.2) g/dL Albumin (3.4-5.0) g/dL Globulin (2.3-3.5) g/dL Albumin/Globulin Ratio (1.2-2.2) Urine Color (YELLOW) Urine Appearance (CLEAR) Urine pH (5.0-8.0) Ur Specific [place] (1.008-1.030) Urine Protein (NEGATIVE) mg/dL Urine Glucose (UA) (NEGATIVE) mg/dL Urine Ketones (NEGATIVE) mg/dL Urine Occult Blood (NEGATIVE) Urine Nitrite (NEGATIVE) Urine Bilirubin (NEGATIVE) Urine Urobilinogen (0.2-1.0) EU/dL Ur Leukocyte Esterase (NEGATIVE) Urine RBC (0-5) Urine WBC (0-5) Ur Epithelial Cells Amorphous Sediment Urine Bacteria Urine Mucus SARS Virus RNA (PCR) (NEGATIVE) Med Orders - Current: Current Medications Acetaminophen (Tylenol) 650 mg PO Q4H PRN PRN Reason: Pain (Mild 1-3)/fever Albuterol (Proventil Neb Soln) 2.5 mg NEB Q4H PRN PRN Reason: Shortness Of Breath/wheezing Amlodipine Besylate (Norvasc) 2.5 mg PO DAILY [facility] Last Admin: 07/04/20 08:22 Dose: 2.5 mg Documented by: Aspirin (Halfprin) 81 mg PO DAILY [facility] Last Admin: 07/04/20 08:24 Dose: 81 mg Documented by: Brimonidine Tartrate (Alphagan 0.2% Ophth Soln) 0 ml EYEBOTH BID [facility] Last Admin: 07/04/20 08:33 Dose: 1 drop Documented by: Dorzolamide/Timolol (Cosopt 2%-0.5% Ophth Soln) 0 ml EYEBOTH BID [facility] Last Admin: 07/04/20 08:32 Dose: 1 drop Documented by: Enoxaparin Sodium (Lovenox) 100 mg SUBCUT Q12H [facility] Last Admin: 07/04/20 05:11 Dose: 100 mg Documented by: Ceftriaxone Sodium 1 gm/ (Sodium Chloride) 50 mls @ 100 mls/hr IV Q24H [facility] Doxycycline Hyclate 100 mg/ (Sodium Chloride) 100 mls @ 100 mls/hr IV Q12H [facility] Last Admin: 07/04/20 04:07 Dose: 100 mls/hr Documented by: Isosorbide Mononitrate (Imdur) 30 mg PO DAILY@0730 [facility] Last Admin: 07/04/20 07:45 Dose: 30 mg Documented by: Methylprednisolone Sodium Succinate (Solu-Medrol) 40 mg IVPUSH Q6H [facility] Metoprolol Tartrate (Lopressor) 25 mg PO DAILY [facility] Last Admin: 07/04/20 08:22 Dose: 25 mg Documented by: Ondansetron HCl (Zofran) 4 mg IV Q4H PRN PRN Reason: Nausea/Vomiting Polyethylene Glycol (Miralax) 17 gm PO DAILY PRN PRN Reason: Constipation Potassium Chloride (Klor-Con M20) 40 meq PO ONETIME ONE Stop: 07/04/20 17:01 Sodium Chloride (Saline Flush) 10 ml FLUSH ASDIRECTED PRN PRN Reason: Keep Vein Open Discontinued Medications Acetaminophen (Tylenol Extra Strength) 1,000 mg PO ONETIME ONE Stop: 07/03/20 12:18 Last Admin: 07/03/20 13:29 Dose: 1,000 mg Documented by: Enoxaparin Sodium (Lovenox) 40 mg SUBCUT DAILY [facility] Last Admin: 07/03/20 14:11 Dose: 40 mg Documented by: Enoxaparin Sodium (Lovenox) 60 mg SUBCUT ONETIME ONE Stop: 07/03/20 17:55 Last Admin: 07/03/20 18:14 Dose: 60 mg Documented by: Sodium Chloride (Normal Saline) 1,000 mls @ 1,000 mls/hr IV ASDIRECTED [facility] Last Admin: 07/03/20 11:42 Dose: 1,000 mls/hr Documented by: Azithromycin 500 mg/ Sodium (Chloride) 250 mls @ 250 mls/hr IV ONETIME ONE Stop: 07/03/20 13:16 Last Admin: 07/03/20 14:12 Dose: 250 mls/hr Documented by: Ceftriaxone Sodium 1 gm/ (Sodium Chloride) 50 mls @ 100 mls/hr IV ONETIME ONE Stop: 07/03/20 13:44 Last Admin: 07/03/20 13:29 Dose: 100 mls/hr Documented by: Sodium Chloride (Normal Saline) 1,000 mls @ 125 mls/hr IV ASDIRECTED [facility] Last Admin: 07/04/20 09:01 Dose: 125 mls/hr Documented by: Potassium Chloride (Klor-Con M20) 40 meq PO ONETIME ONE Stop: 07/04/20 09:01 Last Admin: 07/04/20 08:31 Dose: 40 meq Documented by: - Exam Quality Assessment: DVT Prophylaxis General: Alert, Oriented, Cooperative, No Acute Distress Lungs: Normal Respiratory Effort, Decreased Breath Sounds, Wheezing Cardiovascular: Regular Rate, Regular Rhythm, No Murmurs GI/Abdominal Exam: Soft, Non-Tender, No Organomegaly, No Distention Extremities: Non-Tender, No Pedal Edema Sepsis Event Note - Evaluation Sepsis Screening Result: No Definite Risk - Focused Exam Vital Signs: Vital Signs Temp Pulse Pulse Resp BP BP Pulse Ox 07/04/20 08:22 66 126/77 07/04/20 07:51 98.3 F 72 17 122/63 95 07/04/20 07:45 122/63 07/04/20 06:00 20 99/49 L 93 L 07/04/20 04:00 14 101/53 L 90 L 07/04/20 02:00 98.3 F 19 119/69 92 L 07/04/20 00:00 24 H 115/60 93 L 07/03/20 22:07 22 H 128/46 L 95 Date Exam was Performed: 07/04/20 Time Exam was Performed: 10:01 - Problem List Review Problem List Initiated/Reviewed/Updated: Yes - My Orders Last 24 Hours: My Active Orders 07/03/20 Lunch Regular Diet [DIET] 07/03/20 12:54 Resuscitation Status Routine 07/03/20 13:25 Acetaminophen [Tylenol] 650 mg PO Q4H PRN Albuterol [Proventil Neb Soln] 2.5 mg NEB Q4H PRN Ondansetron [Zofran] 4 mg IV Q4H PRN Sodium Chloride 0.9% [Saline Flush] 10 ml FLUSH ASDIRECTED PRN polyethylene glycoL 3350 [MiraLAX] 17 gm PO DAILY PRN 07/03/20 13:25 Patient Status [ADT] Routine Ambulate [RC] QID Cardiac Monitoring [RC] Q6H Height and Weight [RC] DAILY Intake and Output [RC] QSHIFT Notify Provider Vital Signs [RC] ASDIRECTED Oxygen Therapy [RC] PRN Peripheral IV Care [RC] . DIRECTED Pulse Oximetry [RC] CONTINUOUS RT Aerosol Therapy [RC] ASDIRECTED Up With Assistance [RC] ASDIRECTED Up to Chair [RC] QID VTE/DVT Education [RC] Per Unit Routine Vital Signs [RC] Q2H Peripheral IV Insertion Adult [OM.PC] Routine 07/03/20 16:00 Doxycycline [Vibramycin] 100 mg Sodium Chloride 0.9% [Normal Saline] 100 ml IV Q12H 07/03/20 21:00 Brimonidine [Alphagan 0.2% Ophth Soln] 0 ml EYEBOTH BID Dorzolamide/Timolol [Cosopt 2%-0.5% Ophth Soln] 0 ml EYEBOTH BID 07/04/20 06:00 Enoxaparin [Lovenox] 100 mg SUBCUT Q12H 07/04/20 07:30 Isosorbide Mononitrate [Imdur] 30 mg PO DAILY@0730 07/04/20 09:00 Aspirin [Halfprin] 81 mg PO DAILY Metoprolol Tartrate [Lopressor] 25 mg PO DAILY amLODIPine [Norvasc] 2.5 mg PO DAILY 07/04/20 09:04 Ang Chest [CT] Stat 07/04/20 09:15 methylPREDNISolone Sod Succ [Solu-MEDROL] 40 mg IVPUSH Q6H 07/04/20 13:00 cefTRIAXone [Rocephin] 1 gm Sodium Chloride 0.9% [Normal Saline] 50 ml IV Q24H 07/04/20 17:00 Potassium Chloride [Klor-Con M20] 40 meq PO ONETIME ONE 07/05/20 05:00 BASIC METABOLIC PANEL,BMP [CHEM] Timed - Plan Plan:: ASSESSMENT AND PLAN HYPOXIC RESPIRATORY FAILURE-symptoms of cough with progressive weakness over the past few weeks. Fever with worsening of cough over the past few days. White blood cell count is normal and chest x-ray shows no obvious infiltrates. COVID- 19 is negative. Dramatically improved from admission with less shortness of breath -Supplemental oxygen as needed -Cultures pending -Nebulized albuterol as needed -Empiric IV antibiotic therapy with doxycycline and ceftriaxone, pending culture result -Saline lock IV -CT angiogram of the chest SUPERFICIAL VEIN THROMBOSIS-these are in the thigh and involve larger veins, this does place him at some increased risk of pulmonary embolism. -Therapeutic anticoagulation with Lovenox BRONCHITIS-viral versus bacterial, given respiratory compromise will cover with antibiotics as above -Management as above CORONARY ARTERY DISEASE-currently asymptomatic -Continue outpatient medications MAINTENANCE ISSUES -DVT prophylaxis; Lovenox 40 mg subcu daily -GI prophylaxis; not indicated -Ariza catheter; not indicated -Nutrition; regular diet -Nicotine dependence; not required CODE STATUS-full code ADMISSION STATUS-patient will be admitted to inpatient status, expect at least a 2 night hospital stay for evaluation and management of problems as outlined above. At the time of this admission I do not reasonably expected evaluation and management of this problem will require more than a 96 hour hospital stay. DISPOSITION-anticipate discharge to home after the hospital stay. PRIMARY CARE PROVIDER-Dr. Arciniega
[2020-07-04] MEDS: methylPREDNISolone Sodium Succinate 40 MG/1 ML SDV IVPUSH SCH ×3 (09:18→23:05)
[2020-07-04] MEDS ORDERED: Sodium Chloride 0.9% 90 ML IV ONE (10:00)
[2020-07-04] MEDS ORDERED: Iopamidol 755 Mg/ML 100 ML Bottle IV SCH (10:00)
[2020-07-04] MEDS ORDERED: Sodium Chloride 0.9% 10 ML Syringe FLUSH PRN (10:00)
--- NOTE | 2020-07-04 10:58 | CT ---
Ang Chest CLINICAL HISTORY: Hypoxia, fever TECHNIQUE: Thin section axial contiguous tomographic sections were taken through the chest after bolus IV iodinated contrast administration. Coronal and sagittal images were reconstructed. Auto dosage reduction and iterative reconstruction techniques employed. FINDINGS: There is diffuse interstitial prominence in both lungs. There is some mild diffuse groundglass opacification more prominent in the dependent portions of both lungs. There is a small right pleural effusion. No alveolar infiltrates are identified. There is some bronchial thickening in both lower lobes. No mass is seen. There are a few scattered lymph nodes in the mediastinum. No pulmonary artery filling defects are identified. There is a small pericardial effusion. Patient has a small hiatal hernia . IMPRESSION: Diffuse interstitial prominence may represent some mild interstitial edema. There are groundglass opacifications in both lungs in the dependent portions. This may also be related to some interstitial edema or infiltrate. There is bilateral lower lung bronchial thickening. This could be related to a bronchitis or some peribronchial cuffing from edema. Small nonspecific lymph nodes in the mediastinum No evidence of pulmonary embolus Incidental note of a small calcification in the midpole the right kidney on the lowest most scan.
[2020-07-04] MEDS ORDERED: Furosemide 40 MG/4 ML VIAL IVPUSH ONE (11:57)
[2020-07-04] MEDS: cefTRIAXone 1 GM in Sodium Chloride 0.9% 50 ML IV SCH (12:30)
[2020-07-04] MEDS: Benzocaine/Cetylpyridinium/Menthol Lozenge MUCMEM PRN ×2 (19:59→23:05)
[2020-07-04] MEDS ORDERED: atorvaSTATin 20 MG Tab PO SCH (21:00)
[2020-07-05] MEDS: Doxycycline 100 MG in Sodium Chloride 0.9% 100 ML IV SCH (03:53)
[2020-07-05] MEDS: Benzocaine/Cetylpyridinium/Menthol Lozenge MUCMEM PRN (03:54)
[2020-07-05] MEDS: methylPREDNISolone Sodium Succinate 40 MG/1 ML SDV IVPUSH SCH ×2 (04:58→10:38)
[2020-07-05] MEDS: Enoxaparin 100 MG/1 ML Syringe SUBCUT SCH (05:01)
[2020-07-05 07:50] VITALS: PULSE 61
[2020-07-05] MEDS: Isosorbide Mononitrate 30 MG Tab.ER PO SCH (08:51)
[2020-07-05] MEDS: Brimonidine 0.2% Ophth Soln 5 ML Bottle EYEBOTH SCH (08:51)
[2020-07-05] MEDS: Aspirin 81 MG Tab.EC PO SCH (08:52)
[2020-07-05] MEDS: Dorzolamide/Timolol 2%-0.5% Ophth Soln 10 ML Bottle EYEBOTH SCH (08:52)
[2020-07-05] MEDS: amLODIPine 5 MG Tab PO SCH (08:52)
[2020-07-05 08:54] VITALS: BP 128/88
--- NOTE | 2020-07-05 09:55 | PCM.DCSUM1 ---
Discharge Summary - Hospital Course Brief History: Mr. Lawson is a 79-year-old gentleman who was admitted through the emergency department with weakness and cough secondary to COPD exacerbation and underlying bronchitis. - Discharge Data Discharge Date: 07/05/20 Discharge Disposition: Home, Self-Care 01 Condition: Fair - Referral to Home Health Primary Care Physician: PCP None - Discharge Diagnosis/Problem(s) (1) COPD exacerbation SNOMED Code(s): 623352481 ICD Code: J44.1 - CHRONIC OBSTRUCTIVE PULMONARY DISEASE W (ACUTE) EXACERBATION Status: Acute Current Visit: Yes (2) Bronchitis SNOMED Code(s): 52546144 ICD Code: J40 - BRONCHITIS, NOT SPECIFIED ACUTE OR CHRONIC Status: Acute Current Visit: No (3) Hypoxia SNOMED Code(s): 266900868 ICD Code: R09.02 - HYPOXEMIA Status: Acute Current Visit: Yes (4) Superficial thrombophlebitis of left leg SNOMED Code(s): 44319171404577117 ICD Code: I80.02 - PHLEBITIS AND THOMBOPHLB OF SUPERFIC VESSELS OF L LOW EXTREM Status: Acute Current Visit: Yes - Patient Summary/Data Hospital Course: Mr. Lawson is a 79-year-old gentleman who was admitted through the emergency department with weakness, fever, hypoxia, and cough, secondary to bronchitis and respiratory compromise. He has not felt well over the past few weeks, during that time and has had a cough with progressive decrease in appetite and overall strength. Symptoms have been worse over the last 2 days so he presented to the emergency department for further evaluation. White blood cell count is normal, chest x-ray shows no obvious infiltrates, and COVID-19 test is negative. Respiratory rate was found to be increased with borderline oxygenation and oxygen saturation of 90% on room air. Initially was given IV fluids for hydration noted on IV antibiotic therapy with ceftriaxone and doxycycline. After admission he was noted to have erythema and some swelling of his left thigh. Venous Doppler study was obtained and did show evidence of superficial venous thrombosis involving the left greater saphenous vein, 1.5 cm from the junction with the deep venous system. The following morning CT scan of the chest was obtained and showed no evidence of pulmonary emboli. Because of the proximity to the deep venous system there was felt to be increased risk of developing deep vein thrombosis. We discussed options for ongoing management, follow-up venous Doppler study in 1 week to look for extension into the deep venous system versus anticoagulation for a period of 45 days. He did opt for anticoagulation and was started on Lovenox therapeutic dosing during hospitalization. On discharge he will be placed on Eliquis 10 mg 12 hours for 1 week, then 5 mg every 12 hours for an additional 5 weeks. I did review with him potential risk of bleeding on anticoagulation. Respiratory status improved over a few days of hospitalization and at the time of discharge was not requiring supplemental oxygen. He will be discharged with an additional 3 days of oral antibiotic therapy with doxycycline and oral prednisone. Activity will be as tolerated and he will resume his usual diet. Follow-up appointment will be scheduled with his primary care provider within 1 week. - Patient Instructions Diet: Usual Diet as Tolerated Activity: As Tolerated Other/Special Instructions: Please schedule follow-up appointment with primary care provider within 1 week. - Discharge Plan *PRESCRIPTION DRUG MONITORING PROGRAM REVIEWED*: Not Applicable *COPY OF PRESCRIPTION DRUG MONITORING REPORT IN PATIENT ESTER: Not Applicable Prescriptions/Med Rec: Apixaban [Eliquis] 10 mg PO Q12H #30 tablet predniSONE [Prednisone] 40 mg PO DAILY #6 tablet Doxycycline [Vibra-Tabs] 100 mg PO Q12HR #6 tab Home Medications: Home Meds Aspirin [Aspir 81] 81 mg PO DAILY 07/03/20 [History] Brimonidine [Alphagan P 0.1% [facility] Soln] 1 drop EYEBOTH BID 07/03/20 [History] Dorzolamide HCl/Timolol Maleat [Dorzolamide-Timolol Eye Drops] 1 drop EYEBOTH BID 07/03/20 [History] Isosorbide Mononitrate [Imdur] 30 mg PO DAILY 07/03/20 [History] amLODIPine [Norvasc] 2.5 mg PO DAILY 07/03/20 [History] Apixaban [Eliquis] 10 mg PO Q12H #30 tablet 07/05/20 [Rx] Doxycycline [Vibra-Tabs] 100 mg PO Q12HR #6 tab 07/05/20 [Rx] predniSONE [Prednisone] 40 mg PO DAILY #6 tablet 07/05/20 [Rx] Referrals: Ulises Arciniega MD [Physician] - - Discharge Summary/Plan Comment DC Time >30 min.: No - Patient Data Vitals - Most Recent: Last Vital Signs Temp 95 F L 07/05/20 07:49 Pulse 61 07/05/20 07:49 Resp 16 07/05/20 07:49 BP 128/88 07/05/20 08:52 Pulse Ox 96 07/05/20 07:49 Weight - Most Recent: 214 lb 6 oz I&O - Last 24 hours: Intake & Output 07/04/20 07/05/20 07/05/20 22:59 06:59 14:59 Intake Total 500 Balance 500 Lab Results - Last 24 hrs: Laboratory Results - last 24 hr 07/05/20 Range/Units 04:10 Sodium 140 (140-148) mmol/L Potassium 4.2 (3.6-5.2) mmol/L Chloride 108 (100-108) mmol/L Carbon Dioxide 22 (21-32) mmol/L Anion Gap 9.9 (5.0-14.0) mmol/L BUN 23 H (7-18) mg/dL Creatinine 1.2 (0.8-1.3) mg/dL Est Cr Clr Drug Dosing 52.51 mL/min Estimated GFR (MDRD) 59 L (>60) Glucose 151 H (74-106) mg/dL Calcium 7.5 L (8.5-10.1) mg/dL AYLEEN Results - Last 24 hrs: Microbiology 07/03/20 11:35 Aerobic Blood Culture - Preliminary Blood - Arm, Left NO GROWTH AFTER 1 DAY Anaerobic Blood Culture - Preliminary NO GROWTH AFTER 1 DAY 07/03/20 11:42 Aerobic Blood Culture - Preliminary Blood - Arm, Right NO GROWTH AFTER 1 DAY Anaerobic Blood Culture - Preliminary NO GROWTH AFTER 1 DAY Med Orders - Current: Current Medications Acetaminophen (Tylenol) 650 mg PO Q4H PRN PRN Reason: Pain (Mild 1-3)/fever Albuterol (Proventil Neb Soln) 2.5 mg NEB Q4H PRN PRN Reason: Shortness Of Breath/wheezing Amlodipine Besylate (Norvasc) 2.5 mg PO DAILY [facility] Last Admin: 07/05/20 08:52 Dose: 2.5 mg Documented by: Aspirin (Halfprin) 81 mg PO DAILY [facility] Last Admin: 07/05/20 08:52 Dose: 81 mg Documented by: Atorvastatin Calcium (Lipitor) 20 mg PO BEDTIME [facility] Last Admin: 07/04/20 20:00 Dose: 20 mg Documented by: Benzocaine/Menthol (Cepacol Sore Throat) 1 lozenge MUCMEM Q1H PRN PRN Reason: Sore Throat Last Admin: 07/05/20 03:54 Dose: 1 elinor Documented by: Brimonidine Tartrate (Alphagan 0.2% Ophth Soln) 0 ml EYEBOTH BID [facility] Last Admin: 07/05/20 08:51 Dose: 1 drop Documented by: Dorzolamide/Timolol (Cosopt 2%-0.5% Ophth Soln) 0 ml EYEBOTH BID [facility] Last Admin: 07/05/20 08:52 Dose: 1 drop Documented by: Enoxaparin Sodium (Lovenox) 100 mg SUBCUT Q12H [facility] Last Admin: 07/05/20 05:01 Dose: 100 mg Documented by: Ceftriaxone Sodium 1 gm/ (Sodium Chloride) 50 mls @ 100 mls/hr IV Q24H [facility] Last Admin: 07/04/20 12:30 Dose: 100 mls/hr Documented by: Doxycycline Hyclate 100 mg/ (Sodium Chloride) 100 mls @ 100 mls/hr IV Q12H [facility] Last Admin: 07/05/20 03:53 Dose: 100 mls/hr Documented by: Isosorbide Mononitrate (Imdur) 30 mg PO DAILY@0730 [facility] Last Admin: 07/05/20 08:51 Dose: 30 mg Documented by: Methylprednisolone Sodium Succinate (Solu-Medrol) 40 mg IVPUSH Q6H [facility] Last Admin: 07/05/20 04:58 Dose: 40 mg Documented by: Ondansetron HCl (Zofran) 4 mg IV Q4H PRN PRN Reason: Nausea/Vomiting Polyethylene Glycol (Miralax) 17 gm PO DAILY PRN PRN Reason: Constipation Sodium Chloride (Saline Flush) 10 ml FLUSH ASDIRECTED PRN PRN Reason: Keep Vein Open Discontinued Medications Acetaminophen (Tylenol Extra Strength) 1,000 mg PO ONETIME ONE Stop: 07/03/20 12:18 Last Admin: 07/03/20 13:29 Dose: 1,000 mg Documented by: Enoxaparin Sodium (Lovenox) 40 mg SUBCUT DAILY [facility] Last Admin: 07/03/20 14:11 Dose: 40 mg Documented by: Enoxaparin Sodium (Lovenox) 60 mg SUBCUT ONETIME ONE Stop: 07/03/20 17:55 Last Admin: 07/03/20 18:14 Dose: 60 mg Documented by: Furosemide (Lasix) 40 mg IVPUSH NOW ONE Stop: 07/04/20 11:58 Last Admin: 07/04/20 12:29 Dose: 40 mg Documented by: Sodium Chloride (Normal Saline) 1,000 mls @ 1,000 mls/hr IV ASDIRECTED [facility] Last Admin: 07/03/20 11:42 Dose: 1,000 mls/hr Documented by: Azithromycin 500 mg/ Sodium (Chloride) 250 mls @ 250 mls/hr IV ONETIME ONE Stop: 07/03/20 13:16 Last Admin: 07/03/20 14:12 Dose: 250 mls/hr Documented by: Ceftriaxone Sodium 1 gm/ (Sodium Chloride) 50 mls @ 100 mls/hr IV ONETIME ONE Stop: 07/03/20 13:44 Last Admin: 07/03/20 13:29 Dose: 100 mls/hr Documented by: Sodium Chloride (Normal Saline) 1,000 mls @ 125 mls/hr IV ASDIRECTED [facility] Last Admin: 07/04/20 09:01 Dose: 125 mls/hr Documented by: Sodium Chloride (Normal Saline) 90 mls @ 3 mls/sec IV ONETIME ONE Stop: 07/04/20 10:01 Last Admin: 07/04/20 10:20 Dose: 3 mls/sec Documented by: Iopamidol (Isovue-370 (76%)) 90 ml IV . DIRECTED [facility] Stop: 07/04/20 16:00 Last Admin: 07/04/20 10:21 Dose: 90 ml Documented by: Metoprolol Tartrate (Lopressor) 25 mg PO DAILY [facility] Last Admin: 07/04/20 09:51 Dose: Not Given Documented by: Potassium Chloride (Klor-Con M20) 40 meq PO ONETIME ONE Stop: 07/04/20 09:01 Last Admin: 07/04/20 08:31 Dose: 40 meq Documented by: Potassium Chloride (Klor-Con M20) 40 meq PO ONETIME ONE Stop: 07/04/20 17:01 Last Admin: 07/04/20 16:42 Dose: 40 meq Documented by: Sodium Chloride (Saline Flush) 10 ml FLUSH ONETIME PRN PRN Reason: PER RADIOLOGY PROTOCOL Stop: 07/04/20 16:00 Last Admin: 07/04/20 10:21 Dose: 10 ml Documented by: - Exam Quality Assessment: Reports: DVT Prophylaxis General: Reports: Alert, Oriented, Cooperative, No Acute Distress Lungs: Reports: Normal Respiratory Effort, Decreased Breath Sounds. Denies: Rales, Rhonchi, Rub, Wheezing Cardiovascular: Reports: Regular Rate, Regular Rhythm, No Murmurs GI/Abdominal Exam: Soft, Non-Tender, No Organomegaly, No Distention Extremities: Non-Tender, No Pedal Edema
[2020-07-05] MEDS: cefTRIAXone 1 GM in Sodium Chloride 0.9% 50 ML IV SCH (12:30)
== END 2020-07-05 13:38 | disposition home or self-care (01) | DRG 189 ==
LOC: JP.ED 10:54 → JP.ICU 12:52 → JP.MS 07-04 15:15
PROVIDERS: ADMIT Hospitalist; ATTEND Hospitalist
DX: J40 Bronchitis, not specified as acute or chronic (principal); R09.02 Hypoxemia; R50.81 Fever presenting with conditions classified elsewhere; J96.91 Respiratory failure, unspecified with hypoxia; J44.1 Chronic obstructive pulmonary disease with (acute) exacerbation; J44.0 Chronic obstructive pulmonary disease with (acute) lower respiratory infection; I80.02 Phlebitis and thrombophlebitis of superficial vessels of left lower extremity; J20.9 Acute bronchitis, unspecified; Z20.828 Contact with and (suspected) exposure to other viral communicable diseases; I25.10 Atherosclerotic heart disease of native coronary artery without angina pectoris; I10 Essential (primary) hypertension; H40.9 Unspecified glaucoma; Z79.82 Long term (current) use of aspirin; Z79.899 Other long term (current) drug therapy; Z79.52 Long term (current) use of systemic steroids; Z87.891 Personal history of nicotine dependence
CPT/HCPCS: 36415; 71046 ×2; 80053; 83605; 85025; 87040 ×2; 96360; 99285; J7030; U0002; 36600; 71275; 71275-26; 80048; 81001; 82803; 93971-LT; 99222-AI; 99231; 99238; 99284; A9270-GY; J0456; J0696; J1650; J1940; J2920; J3490; J7050; Q9967

== ENCOUNTER 2021-07-18 15:35 | Emergency (ER) | payer MEDICARE, OTHER, MEDICAID ==
--- NOTE | 2021-07-18 16:15 | EDM.PDOC ---
ED HPI GENERAL MEDICAL PROBLEM - General Chief Complaint: General Stated Complaint: MEDICAL VIA [facility] Time Seen by Provider: 07/18/21 16:15 Source of Information: Reports: Patient, RN Notes Reviewed History Limitations: Reports: No Limitations - History of Present Illness INITIAL COMMENTS - FREE TEXT/NARRATIVE: Quinten presents today for complaints of dizziness, feeling tired. He states he felt dizzy, laid down for a nap, slept well, woke up and when he got up from his nap he was dizzy. He checked his blood pressure with his wrist blood pressure home monitoring machine it was high at 170/90. He then telephoned 911. He denies fever, chills, nausea, vomiting, change in vision, SOB, cough, chest pain, palpitations or other concerns. - Related Data Allergies Allergy/AdvReac Type Severity Reaction Status Date / Time No Known Allergies Allergy Verified 07/18/21 17:25 Home Meds: Home Meds Aspirin [Aspir 81] 81 mg PO DAILY 07/03/20 [History] Brimonidine [Alphagan P 0.1% Ophth Soln] 1 drop EYEBOTH BID 07/03/20 [History] Dorzolamide HCl/Timolol Maleat [Dorzolamide-Timolol Eye Drops] 1 drop EYEBOTH BID 07/03/20 [History] Isosorbide Mononitrate [Imdur] 30 mg PO DAILY 07/03/20 [History] amLODIPine [Norvasc] 2.5 mg PO DAILY 07/03/20 [History] Apixaban [Eliquis] 10 mg PO Q12H #30 tablet 07/05/20 [Rx] Doxycycline [Vibra-Tabs] 100 mg PO Q12HR #6 tab 07/05/20 [Rx] predniSONE [Prednisone] 40 mg PO DAILY #6 tablet 07/05/20 [Rx] Past Medical History HEENT History: Reports: Glaucoma Cardiovascular History: Reports: CAD, Hypertension Social & Family History - Caffeine Use Caffeine Use: Reports: Coffee ED ROS GENERAL - Review of Systems Review Of Systems: See Below Constitutional: Reports: Fatigue HEENT: Reports: No Symptoms Respiratory: Reports: No Symptoms Cardiovascular: Reports: No Symptoms Endocrine: Reports: Fatigue GI/Abdominal: Reports: No Symptoms : Reports: Frequency (he reports increased frequency of urination) Musculoskeletal: Reports: No Symptoms Skin: Reports: No Symptoms Neurological: Reports: No Symptoms Psychiatric: Reports: No Symptoms Hematologic/Lymphatic: Reports: No Symptoms Immunologic: Reports: No Symptoms ED EXAM, GENERAL - Physical Exam Exam: See Below Exam Limited By: No Limitations General Appearance: Alert, WD/WN, No Apparent Distress Eye Exam: Bilateral Eye: EOMI, Normal Inspection, PERRL Ears: Normal External Exam, Normal Canal, Hearing Grossly Normal, Normal TMs Ear Exam: Bilateral Ear: TM normal Throat/Mouth: Normal Inspection, Normal Lips, Normal Gums, Normal Oropharynx, Normal Voice, No Airway Compromise Head: Atraumatic, Normocephalic Neck: Normal Inspection, Supple, Non-Tender, Full Range of Motion. No: Lymphadenopathy (R), Lymphadenopathy (L) Respiratory/Chest: No Respiratory Distress, Lungs Clear, Normal Breath Sounds, No Accessory Muscle Use, Chest Non-Tender. No: Crackles, Rales, Rhonchi, Wheezing Cardiovascular: Normal Peripheral Pulses, Regular Rate, Rhythm, No Edema, No Gallop, No Murmur, No Rub Peripheral Pulses: 4+: Radial (L), Radial (R), Dorsalis Pedis (L), Dorsalis Pedis (R) GI/Abdominal: Normal Bowel Sounds, Soft, Non-Tender, No Organomegaly, No Distention, No Mass. No: Guarding, Rigid, Rebound (Male) Exam: Deferred Rectal (Males) Exam: Deferred Back Exam: Normal Inspection, Full Range of Motion. No: CVA Tenderness (R), CVA Tenderness (L) Extremities: Normal Inspection, Normal Range of Motion, Non-Tender, No Pedal Edema, Normal Capillary Refill Neurological: Alert, Oriented, CN II-XII Intact, Normal Cognition, Normal Gait, No Motor/Sensory Deficits Psychiatric: Normal Affect, Normal Mood Skin Exam: Warm, Dry, Intact, Normal Color, No Rash Lymphatic: No Adenopathy #1 Interpretation EKG Date: 07/18/21 Time: 16:46 Rhythm: NSR Rate (Beats/Min): 73 QRS: Normal ST-T: Normal QT: Normal Comparison: No Change EKG Interpretation Comments: prolonged ND interval 236 Course - Vital Signs Last Recorded V/S: Last Vital Signs Temp 36.7 C 07/18/21 17:43 Pulse 76 07/18/21 17:43 Resp 16 07/18/21 17:43 BP 169/84 H 07/18/21 17:43 Pulse Ox 93 L 07/18/21 17:43 Blood pressure prior to discharge, 149/76, no dizziness at rest or with ambulation. - Orders/Labs/Meds Orders: Active Orders 24 hr Category Date Time Status EKG 12 Lead [EK] Routine Ther 07/18/21 16:31 Ordered Labs: Laboratory Tests 07/18/21 07/18/21 07/18/21 Range/Units 16:43 16:43 16:43 WBC 8.2 (4.5-11.0) K/uL RBC 4.35 (4.30-5.90) M/uL Hgb 14.2 D (12.0-15.0) g/dL Hct 42.6 (40.0-54.0) % MCV 98 (80-98) fL MCH 33 H (27-31) pg MCHC 33 (32-36) % Plt Count 208 (150-400) K/uL Neut % (Auto) 58.5 (36-66) % Lymph % (Auto) 21.5 L (24-44) % [place] % (Auto) 15.4 H (2-6) % Eos % (Auto) 4.4 H (2-4) % Baso % (Auto) 0.2 (0-1) % Sodium 142 (140-148) mmol/L Potassium 4.3 (3.6-5.2) mmol/L Chloride 106 (100-108) mmol/L Carbon Dioxide 24 (21-32) mmol/L Anion Gap 12.0 (5.0-14.0) mmol/L BUN 26 H (7-18) mg/dL Creatinine 1.2 (0.8-1.3) mg/dL Est Cr Clr Drug Dosing 49.10 mL/min Estimated GFR (MDRD) 58 L (>60) Glucose 109 H (74-106) mg/dL Calcium 8.1 L (8.5-10.1) mg/dL Total Bilirubin 0.2 D (0.2-1.0) mg/dL AST 32 (15-37) U/L ALT 46 (12-78) U/L Alkaline Phosphatase 126 H D (46-116) U/L Total Protein 6.9 (6.4-8.2) g/dL Albumin 3.4 (3.4-5.0) g/dL Globulin 3.5 (2.3-3.5) g/dL Albumin/Globulin Ratio 1.0 L (1.2-2.2) TSH, Ultra Sensitive 12.713 H (0.358-3.740) uIU/mL Urine Color Yellow (YELLOW) Urine Appearance Clear (CLEAR) Urine pH 7.0 (5.0-8.0) Ur Specific [place] 1.020 (1.008-1.030) Urine Protein Negative (NEGATIVE) mg/dL Urine Glucose (UA) Negative (NEGATIVE) mg/dL Urine Ketones Negative (NEGATIVE) mg/dL Urine Occult Blood Negative (NEGATIVE) Urine Nitrite Negative (NEGATIVE) Urine Bilirubin Negative (NEGATIVE) Urine Urobilinogen 0.2 (0.2-1.0) EU/dL Ur Leukocyte Esterase Negative (NEGATIVE) Urine RBC 0-5 (0-5) Urine WBC 0-5 (0-5) Ur Epithelial Cells Not seen Amorphous Sediment Not seen Urine Bacteria Not seen Urine Mucus Not seen Meds: Medications Discontinued Medications Generic Name Dose Route Start Last Admin Trade Name Freq PRN Reason Stop Dose Admin Levothyroxine Sodium 150 mcg 07/18/21 17:36 07/18/21 18:11 Levothyroxine 112 Mcg Tab PO 07/18/21 17:37 Not Given ONETIME ONE Levothyroxine Sodium 112 mcg 07/18/21 17:48 07/18/21 18:11 Levothyroxine 112 Mcg Tab PO 07/18/21 17:49 Not Given ONETIME ONE Levothyroxine Sodium 125 mcg 07/18/21 18:00 07/18/21 18:11 Levothyroxine 112 Mcg Tab PO 07/18/21 18:01 Not Given ONETIME ONE Levothyroxine Sodium 112 mcg 07/18/21 18:08 07/18/21 18:10 Levothyroxine 112 Mcg Tab PO 07/18/21 18:09 112 mcg ONETIME ONE Administration Dose administered levothyroxine 112mcgs PO. - Re-Assessments/Exams Free Text/Narrative Re-Assessment/Exam: 07/18/21 16:36 Patient up to bathroom without assistance, gait steady, no nystagmus with position changes. 07/18/21 17:25 Patient resting, denies complaints. 07/18/21 17:35 Lab work reviewed with patient, TSH elevated >12. He will start use of levothyroxine 112mcg PO daily. Follow up with primary provider in 2 to 4 weeks for recheck. Return to emergency room for any worsening, issues or concerns. Patient in agreement with plan. Departure - Departure Time of Disposition: 17:41 Disposition: Home, Self-Care 01 Condition: Good Clinical Impression: Hypothyroidism - Discharge Information Instructions: Hypothyroidism Referrals: PCP,None [Primary Care Provider] - Forms: ED Department Discharge Additional Instructions: You have been evaluated in the emergency room and found to have dizziness. There were no acute findings on your EKG tracing of your heart and your blood pressure was stable while here. You have been found to have hypothyroidism with a TSH level of 12.713. You were started on levothyroxine 112mcg. 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 Take levothyroxine 150mcg by mouth daily on an empty stomach. Please work on drinking more water as well to keep hydrated and to protect your kidneys. Follow up with your primary in 2 to 4 weeks for a recheck and any other needs. Return for any worsening, issues or concerns. Sepsis Event Note (ED) - Focused Exam Vital Signs: Vital Signs Temp Pulse Resp BP Pulse Ox 07/18/21 17:43 36.7 C 76 16 169/84 H 93 L 07/18/21 17:39 76 169/84 H 07/18/21 16:55 71 164/92 H 07/18/21 15:52 36.7 C 76 16 147/67 H 93 L - My Orders Last 24 Hours: My Active Orders 07/18/21 16:31 EKG 12 Lead [EK] Routine - Assessment/Plan Last 24 Hours: My Active Orders 07/18/21 16:31 EKG 12 Lead [EK] Routine Assessment:: Hypothyroidism Plan: Patient evaluated in the emergency room and found to have dizziness. There were no acute findings on your EKG tracing of your heart and your blood pressure was stable while here. He has hypothyroidism with a TSH level of 12.713. He was started on levothyroxine 112mcg. 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 Take levothyroxine 150mcg by mouth daily on an empty stomach. Please work on drinking more water as well to keep hydrated and to protect kidneys. Follow up with primary in 2 to 4 weeks for a recheck and any other needs. Return for any worsening, issues or concerns.
[2021-07-18] MEDS ORDERED: Levothyroxine 112 MCG Tab PO ONE ×4 (17:36→18:08)
[2021-07-18 17:39] VITALS: BP 169/84; PULSE 76
== END 2021-07-18 18:04 | disposition home or self-care (01) ==
LOC: JP.ED 15:35
DX: E03.9 Hypothyroidism, unspecified (principal); R42 Dizziness and giddiness; I25.10 Atherosclerotic heart disease of native coronary artery without angina pectoris; I10 Essential (primary) hypertension; Z79.82 Long term (current) use of aspirin; Z79.01 Long term (current) use of anticoagulants; Z79.899 Other long term (current) drug therapy
CPT/HCPCS: 36415; 80053; 81001; 84443; 85025; 93005; 99284; A9270